=== PATIENT | born 2000 | race Caucasian/White ===

== ENCOUNTER 2025-05-17 11:06 | Emergency (ER) | payer SELFPAY ==
[~2025-05-17] VITALS: Ht 185.4 cm; Wt 67.0 kg
[2025-05-17 11:14] VITALS: O2SAT 99
[2025-05-17] MEDS: BACITRACIN ZINC OINT UDPKT TOP ONE (12:12)
[2025-05-17 12:27] LABS: BASOPHILS % 0.6 % (0.0-2.0); EOSINOPHILS % 2.0 % (0.0-5.0); HEMATOCRIT. 34.8 %; HEMOGLOBIN. 11.7 g/dL; LYMPHOCYTES % 17.6 %; MEAN PLATELET VOLUME 7.8 fl (7.4-10.4); MONOCYTES % 6.5 % (2.0-8.0); NEUTROPHILS % 73.3 %; PLATELET 411 x1000/uL (130-400); RED BLOOD CELL COUNT 3.91 mill/uL; RED CELL DISTRIBUTION WIDTH 13.1 % (11.6-14.6)
[2025-05-17 12:43] LABS: CREATININE 0.7 mg/dL (0.6-1.0)
[2025-05-17 12:44] LABS: UREA NITROGEN BLOOD 9 mg/dL (9-23)
[2025-05-17 12:54] LABS: C REACTIVE PROTEIN HIGH SENS 30.14 mg/l
[2025-05-17 13:17] LABS: ERYTHROCYTE SEDIMENTATION RATE 47 mm/hr
[2025-05-17] MEDS ORDERED: BO1 TP (13:52)
[2025-05-17 15:07] VITALS: BP 118/66; PULSE 18; RESP 16; TEMP 36.7; O2SAT 100
== END 2025-05-17 15:09 | disposition home or self-care (01) ==
LOC: ER 11:06 → EDSEX 11:06 → ER 15:09
DX: S91.302A Unspecified open wound, left foot, initial encounter (principal); S91.301A Unspecified open wound, right foot, initial encounter; S41.102A Unspecified open wound of left upper arm, initial encounter; S41.101A Unspecified open wound of right upper arm, initial encounter; X58.XXXA Exposure to other specified factors, initial encounter; Y93.89 Activity, other specified; Y92.89 Other specified places as the place of occurrence of the external cause; Y99.8 Other external cause status
CPT/HCPCS: 99284; 80048; 86141; 85025; 85651; 36415; 73630; A6449